=== PATIENT | female | born 1945 | race Caucasian/White ===

== ENCOUNTER 2018-04-20 18:09 | Inpatient (IN) | payer MEDICARE, OTHER, MEDICAID ==
[2018-04-20] MEDS ORDERED: ASPIRIN 81 MG TABLET, CHEWABLE PO ONE (18:44)
[2018-04-20] MEDS: DILTIAZEM HCL/D5W 125 MG/125 ML RTUINJ IV PRN (19:00)
--- NOTE | 2018-04-20 19:41 | RADIOLOGY REPORT (SQ) ---
EXAM DESCRIPTION: CHEST SINGLE VIEW COMPLETED DATE/TIME: 04/20/2018 7:13 pm REASON FOR STUDY: a, fib RVR, SOB COMPARISON: None. EXAM PARAMETERS: NUMBER OF VIEWS: One view. TECHNIQUE: Single frontal radiographic view of the chest acquired. RADIATION DOSE: NA LIMITATIONS: None. FINDINGS: LUNGS AND PLEURA: No opacities, masses or pneumothorax. No pleural effusion. MEDIASTINUM AND HILAR STRUCTURES: No masses. Contour normal. HEART AND VASCULAR STRUCTURES: Heart normal in size. Normal vasculature. BONES: No acute findings. HARDWARE: None in the chest. OTHER: No other significant finding. IMPRESSION: NO ACUTE RADIOGRAPHIC FINDING IN THE CHEST. TECHNICAL DOCUMENTATION: JOB ID: [id number] [employer]- All Rights Reserved Reading location - IP/workstation name: [email or web address]
[2018-04-20 20:17] LABS: ABSOLUTE BASOPHILS # (AUTO) 0.1 10^3/uL (0.0-0.2); ABSOLUTE EOSINOPHILS # (AUTO) 0.1 10^3/uL (0.0-0.6); ABSOLUTE LYMPHOCYTES (AUTO) 1.6 10^3/uL (0.5-4.7); ABSOLUTE MONOCYTES (AUTO) 0.5 10^3/uL (0.1-1.4); ABSOLUTE NEUT (AUTO) 4.4 10^3/uL (1.7-8.2); EOSINOPHILS % (AUTO) 0.8 % (0-6); HEMATOCRIT 38.5 % (36.0-47.0); HEMOGLOBIN 13.3 g/dL (12.0-15.5); LYMPHOCYTES % (AUTO) 24.4 % (13-45); MEAN CORPUSCULAR HEMOGLOBIN 31.5 pg (27.0-33.4); MEAN CORPUSCULAR HGB CONC 34.5 g/dL (32.0-36.0); MEAN CORPUSCULAR VOLUME 91 fl (80-97); MONOCYTES % (AUTO) 8.2 % (3-13); PLATELET COUNT 241 10^3/uL (150-450); RED BLOOD COUNT 4.21 10^6/uL (3.72-5.28); RED CELL DISTRIBUTION WIDTH 14.1 % (11.5-14.0); SEGMENTED NEUTROPHILS % (AUTO) 65.6 % (42-78); TOTAL CELLS COUNTED % (AUTO) 100 %; WHITE BLOOD COUNT 6.7 10^3/uL (4.0-10.5)
[2018-04-20 20:24] LABS: INTERNATIONAL RATION (INR) 1.03
[2018-04-20 20:25] LABS: PARTIAL THROMBOPLASTIN TIME 32.1 SEC (23.5-35.8)
[2018-04-20 20:29] LABS: ALANINE AMINOTRANSFERASE 43 U/L (9-52); ALBUMIN 4.3 g/dL (3.5-5.0); ALKALINE PHOSPHATASE 98 U/L (38-126); ANION GAP 10 (5-19); ASPARTATE AMINO TRANSFERASE 57 U/L (14-36); BILIRUBIN,DIRECT 0.2 mg/dL (0.0-0.4); BILIRUBIN,TOTAL 0.6 mg/dL (0.2-1.3); BLOOD UREA NITROGEN 25 mg/dL (7-20); CALCIUM 9.7 mg/dL (8.4-10.2); CARBON DIOXIDE 26 mmol/L (22-30); CHLORIDE 105 mmol/L (98-107); CREATINE KINASE 33 U/L (30-135); GLUCOSE 132 mg/dL (75-110); SODIUM 140.7 mmol/L (137-145); TOTAL PROTEIN 7.5 g/dL (6.3-8.2)
[2018-04-20 20:31] LABS: APPEARANCE,URINE SLIGHTLY-CLOUDY; BILIRUBIN,URINE NEGATIVE (NEGATIVE); COLOR,URINE YELLOW; GLUCOSE, URINE NEGATIVE (NEGATIVE); KETONES,URINE NEGATIVE (NEGATIVE); LEUKOCYTE ESTERASE,URINE TRACE (NEGATIVE); NITRITE,URINE NEGATIVE (NEGATIVE); PROTEIN,URINE NEGATIVE (NEGATIVE); URINE SPECIFIC GRAVITY 1.018; UROBILINOGEN,URINE NEGATIVE mg/dL (<2.0)
[2018-04-20 20:55] LABS: CREATINE KINASE MB 0.24 ng/mL (<4.55); TROPONIN I 0.031 ng/mL
[2018-04-20 21:01] LABS: FREE T3 4.65 pg/mL (2.77-5.27); FREE T4 (FREE THYROXINE) 1.53 ng/dL (0.78-2.19)
[2018-04-20 21:15] LABS: THYROID STIMULATING HORMONE 2.69 uIU/mL (0.47-4.68)
--- NOTE | 2018-04-20 22:42 | EKG REPORT ---
SEVERITY:- ABNORMAL ECG - ATRIAL FIBRILLATION, V-RATE 64-143 BORDERLINE R WAVE PROGRESSION, ANTERIOR LEADS : Confirmed by: Srikanth Barkley MD 20-Apr-2018 22:40:52
--- NOTE | 2018-04-21 00:33 | ER Document Report ---
Entered by KRISH RIBEIRO SCRIBE 04/20/182008 Acting as scribe for:ARNAUD WATSON DO ED Respiratory Problem - General Chief Complaint: Shortness Of Breath Stated Complaint: SHORTNESS OF BREATH Time Seen by Provider: 04/20/18 18:42 Mode of Arrival: Ambulatory Information source: Patient Notes: 72-year-old female that presents to the emergency department today with complaints of an elevated heart rate prior to arrival. Patient states that today she began feeling flushed, her throat felt tight/achy, and she then stood up and felt dizzy. EMS reports when they arrived the patient had a heart rate of 200 and was in atrial fibrillation. They gave her a bolus of Cardizem and started her on a drip of Cardizem at 10. After this her symptoms resolved. Patient states she believes she has a history of A. fib but she is not on any medication. Patient states she took metoprolol for this at one time but was taken off of it. Patient also complains of a headache. Patient states that she does not take aspirin daily. TRAVEL OUTSIDE OF THE [place] IN LAST 30 DAYS: No - Related Data Allergies/Adverse Reactions: levofloxacin [From Levaquin] Allergy (Verified 04/20/18 18:32) lisinopril Allergy (Verified 04/20/18 18:33) acetaminophen [From Percocet] Adverse Reaction (Verified 04/21/18 03:04) Constipation oxycodone [From Percocet] Adverse Reaction (Verified 04/21/18 03:04) Constipation Past Medical History - General Information source: Patient - Social History Smoking Status: Former Smoker Cigarette use (# per day): No Frequency of alcohol use: None Drug Abuse: None Lives with: Family Family History: Reviewed & Not Pertinent Patient has suicidal ideation: No Patient has homicidal ideation: No - Past Medical History Cardiac Medical History: Reports: Hx Atrial Fibrillation Malignancy Medical History: Reports: Hx Skin Cancer Past Surgical History: Reports: Other - Biopsies of scalp - basal cell carcinoma Review of Systems - Review of Systems Constitutional: See HPI, Other - feeling flushed EENT: See HPI, Other - throat feels tight/achy Cardiovascular: See HPI, Heart racing, Dizziness Respiratory: No symptoms reported Gastrointestinal: No symptoms reported Genitourinary: No symptoms reported Female Genitourinary: No symptoms reported Musculoskeletal: See HPI, Back pain - chronic Skin: No symptoms reported Hematologic/Lymphatic: No symptoms reported Neurological/Psychological: See HPI, Headaches -: Yes All other systems reviewed and negative Physical Exam - Vital signs Vitals: Resp 12 04/20/18 18:18 - Notes Notes: PHYSICAL EXAM GENERAL: Alert, interacts well. No acute distress. HEAD: Normocephalic. Sutures with crusting to scalp with 6mm of surrounding erythema, no fluctuance. EYES: Pupils equal, round, and reactive to light. Extraocular movements intact. ENT: Oral mucosa moist, tongue midline. NECK: Full range of motion. Supple. Trachea midline. LUNGS: Clear to auscultation bilaterally, no wheezes, rales, or rhonchi. No resp iratory distress. HEART: Irregular irregular, rate controlled. No murmurs, gallops, or rubs. EXTREMITIES: Moves all 4 extremities spontaneously. No edema, radial and dorsalis pedis pulses 2/4 bilaterally. No cyanosis. NEUROLOGICAL: Alert and oriented x3. Normal speech. PSYCH: Normal affect, normal mood. SKIN: Warm, dry, normal turgor. Course - Re-evaluation Re-evalutation: 04/21/18 00:31 CBC unremarkable, coags unremarkable, CMP grossly unremarkable only some hyperglycemia, troponin is initially negative and then into to indeterminate it was 0.031 and then 0.058, no continuing ongoing chest pain. Urinalysis is trace leukocyte esterase. Chest x-ray shows no acute process. EKG is nonischemic. Patient has been increasingly rate controlled since arriving in the emergency department. Patient's Cardizem drip started at 10 and has now been decreased to 8. Patient was discussed with Dr. Marcus who agrees to accept the patient to his service for A. fib RVR. - Vital Signs Vital signs: Temp Pulse Resp BP Pulse Ox 98.0 F 12 116/58 L 97 04/20/18 18:28 04/21/18 02:01 04/21/18 02:01 04/21/18 02:18 - Laboratory Result Diagrams: 04/20/18 19:50 04/20/18 19:50 Laboratory results interpreted by me: 04/20/18 04/20/18 04/20/18 19:50 19:50 20:15 RDW 14.1 H BUN 25 H Est GFR (Non-Af Amer) 55 L Glucose 132 H AST 57 H Ur Leukocyte Esterase TRACE H - EKG Interpretation by Me Additional EKG results interpreted by me: 04/21/18 00:31 EKG shows atrial fibrillation which is tachycardic at a rate of 103, normal axis, normal intervals no ST segment elevations or depressions, no T wave inversions per my interpretation. Critical Care Note - Critical Care Note Total time excluding time spent on procedures (mins): 35 Discharge - Discharge Clinical Impression: Atrial fibrillation with RVR Condition: Good Disposition: ADMITTED INPATIENT Admitting Provider: [facility] Unit Admitted: Telemetry I personally performed the services described in the documentation, reviewed and edited the documentation which was dictated to the scribe in my presence, and it accurately records my words and actions.
[2018-04-21] MEDS ORDERED: ACETAMINOPHEN 325 MG TABLET PO PRN (00:38)
[2018-04-21] MEDS ORDERED: DEXTROSE 50%-WATER 25 GM/50 ML DISP.SYRIN IV PRN ×2 (00:38)
[2018-04-21] MEDS ORDERED: DEXTROSE 40% GEL 15 GM TUBE PO PRN ×2 (00:38)
[2018-04-21] MEDS ORDERED: MAG HYDROX/AL HYDROX/SIMETH SUSP 30 ML UDCUP PO PRN (00:38)
[2018-04-21] MEDS ORDERED: MAGNESIUM HYDROXIDE SUSP 30 ML UDCUP PO PRN (00:38)
[2018-04-21] MEDS ORDERED: GLUCAGON,HUMAN RECOMB 1 MG INJ IM PRN (00:38)
[2018-04-21] MEDS: NORMAL SALINE 1000 ML 1,000 ML IV PRN ×2 (02:30→04:19)
[2018-04-21] MEDS ORDERED: KETOROLAC TROMETHAMINE INJ/PF 30 MG/1 ML SDV IV PRN (04:14)
[2018-04-21 05:11] LABS: ANION GAP 11 (5-19); BLOOD UREA NITROGEN 23 mg/dL (7-20); CALCIUM 9.1 mg/dL (8.4-10.2); CARBON DIOXIDE 22 mmol/L (22-30); CHLORIDE 109 mmol/L (98-107); GLUCOSE 117 mg/dL (75-110); POTASSIUM 3.7 mmol/L (3.6-5.0); SODIUM 141.5 mmol/L (137-145)
--- NOTE | 2018-04-21 06:15 | PDOC H&P ---
History of Present Illness Admission Date/PCP: 04/21/18 00:37 Patient complains of: Lightheaded History of Present Illness: BRANDI LUCIA is a 72 year old female with a past medical history of diabetes, hypertension, chronic back pain and morbid obesity. She presents 1 hour after the onset of awakening from sleep feeling flushed lightheaded with throat tightness prompting a call to the EMS where she is reported to be in atrial fibrillation in the 200s. She receives Cardizem 10 resolving symptoms and brought to the emergency room for evaluation where she is continued on IV Cardizem. She believes a remote diagnosis of atrial fibrillation for which she was on metoprolol. Patient has scheduled spinal surgery for chronic back pain next week, anticoagulation not initiated. New medications initiated for pain following basal cell carcinoma resection on the scalp. Past Medical History Cardiac Medical History: Reports: Atrial Fibrillation Malignancy Medical History: Reports: Skin Cancer Past Surgical History Past Surgical History: Reports: Other - Biopsies of scalp - basal cell carcinoma Social History Information Source: Patient, [facility] Records Lives with: Family Smoking Status: Former Smoker Frequency of Alcohol Use: None Hx Recreational Drug Use: No Hx Prescription Drug Abuse: No - Advance Directive Resuscitation Status: Full Code Family History Family History: Hypertension Parental Family History Reviewed: Yes Children Family History Reviewed: Yes Sibling(s) Family History Reviewed.: Yes Medication/Allergy Home Medications: Baclofen [Baclofen 10 mg Tablet] 10 mg PO TID PRN 04/21/18 Cephalexin Monohydrate [Keflex 250 mg Capsule] 250 mg PO TID 04/21/18 Fluticasone Propionate [Flonase Nasal [place] 50 Mcg/[place] 16 gm] 2 sprays NASL Q12 04/21/18 Losartan Potassium 100 mg PO DAILY 04/21/18 Melatonin [Melatonin 3 mg Tablet] 3 mg PO QHS 04/21/18 Meloxicam [Mobic 7.5 mg Tablet] 7.5 mg PO BID PRN 04/21/18 Metformin HCl 500 mg PO BID 04/21/18 Omeprazole 40 mg PO BID 04/21/18 Allergies/Adverse Reactions: levofloxacin [From Levaquin] Allergy (Verified 04/20/18 18:32) lisinopril Allergy (Verified 04/20/18 18:33) acetaminophen [From Percocet] Adverse Reaction (Verified 04/21/18 03:04) Constipation oxycodone [From Percocet] Adverse Reaction (Verified 04/21/18 03:04) Constipation Review of Systems Constitutional: ABSENT: chills, fever(s), headache(s), weight gain, weight loss Eyes: ABSENT: visual disturbances Ears: ABSENT: hearing changes Cardiovascular: ABSENT: chest pain, dyspnea on exertion, edema, orthropnea, palpitations Respiratory: ABSENT: cough, hemoptysis Gastrointestinal: ABSENT: abdominal pain, constipation, diarrhea, hematemesis, hematochezia, nausea, vomiting Genitourinary: ABSENT: dysuria, hematuria Musculoskeletal: ABSENT: joint swelling Integumentary: ABSENT: rash, wounds Neurological: ABSENT: abnormal gait, abnormal speech, confusion, dizziness, focal weakness, syncope Psychiatric: ABSENT: anxiety, depression, homidical ideation, suicidal ideation Endocrine: ABSENT: cold intolerance, heat intolerance, polydipsia, polyuria Hematologic/Lymphatic: ABSENT: easy bleeding, easy bruising Physical Exam Vital Signs: Temp Pulse Resp BP Pulse Ox 97.5 F 73 12 132/58 H 98 04/21/18 03:01 04/21/18 04:45 04/21/18 03:01 04/21/18 04:45 04/21/18 03:01 Intake & Output 04/19/18 04/20/18 04/21/18 11:59 11:59 11:59 Intake Total 993 Balance 993 Weight 106.8 kg General appearance: PRESENT: no acute distress, cooperative, well-developed, w ell-nourished Head exam: PRESENT: atraumatic, normocephalic, other - 5 cm sutured incision frontal to caudial scalp appears clean without pain, erythema or exudate Eye exam: PRESENT: conjunctiva pink, EOMI, PERRLA. ABSENT: scleral icterus Ear exam: PRESENT: normal external ear exam Mouth exam: PRESENT: moist, tongue midline Neck exam: ABSENT: carotid bruit, JVD, lymphadenopathy, thyromegaly Respiratory exam: PRESENT: clear to auscultation radha. ABSENT: rales, rhonchi, wheezes Cardiovascular exam: PRESENT: irregular rhythm, tachycardia. ABSENT: diastolic murmur, rubs, systolic murmur Pulses: PRESENT: normal dorsalis pedis pul Vascular exam: PRESENT: normal capillary refill GI/Abdominal exam: PRESENT: normal bowel sounds, soft. ABSENT: distended, guarding, mass, organolmegaly, rebound, tenderness Rectal exam: PRESENT: deferred Extremities exam: PRESENT: full ROM. ABSENT: calf tenderness, clubbing, pedal edema Neurological exam: PRESENT: alert, awake, oriented to person, oriented to place, oriented to time, oriented to situation, CN II-XII grossly intact. ABSENT: motor sensory deficit Psychiatric exam: PRESENT: appropriate affect, normal mood. ABSENT: homicidal ideation, suicidal ideation Skin exam: PRESENT: dry, intact, warm. ABSENT: cyanosis, rash Results Laboratory Results: 04/20/18 19:50 04/21/18 04:46 04/20/18 04/20/18 04/20/18 19:50 19:50 19:50 WBC 6.7 RBC 4.21 Hgb 13.3 Hct 38.5 MCV 91 MCH 31.5 MCHC 34.5 RDW 14.1 H Plt Count 241 Seg Neutrophils % 65.6 Lymphocytes % 24.4 Monocytes % 8.2 Eosinophils % 0.8 Basophils % 1.0 Absolute Neutrophils 4.4 Absolute Lymphocytes 1.6 Absolute Monocytes 0.5 Absolute Eosinophils 0.1 Absolute Basophils 0.1 Sodium 140.7 Potassium 4.0 Chloride 105 Carbon Dioxide 26 Anion Gap 10 BUN 25 H Creatinine 1.00 Est GFR ( Amer) > 60 Est GFR (Non-Af Amer) 55 L Glucose 132 H Calcium 9.7 Magnesium Total Bilirubin 0.6 AST 57 H ALT 43 Alkaline Phosphatase 98 Total Protein 7.5 Albumin 4.3 TSH 2.69 Free T4 1.53 Free T3 pg/mL 4.65 Urine Color Urine Appearance Urine pH Ur Specific [place] Urine Protein Urine Glucose (UA) Urine Ketones Urine Blood Urine Nitrite Ur Leukocyte Esterase Urine WBC (Auto) Urine RBC (Auto) 04/20/18 04/20/18 04/21/18 20:15 22:53 04:46 WBC RBC Hgb Hct MCV MCH MCHC RDW Plt Count Seg Neutrophils % Lymphocytes % Monocytes % Eosinophils % Basophils % Absolute Neutrophils Absolute Lymphocytes Absolute Monocytes Absolute Eosinophils Absolute Basophils Sodium 141.5 Potassium 3.7 Chloride 109 H Carbon Dioxide 22 Anion Gap 11 BUN 23 H Creatinine 0.73 Est GFR ( Amer) > 60 Est GFR (Non-Af Amer) > 60 Glucose 117 H Calcium 9.1 Magnesium 1.9 Total Bilirubin AST ALT Alkaline Phosphatase Total Protein Albumin TSH Free T4 Free T3 pg/mL Urine Color YELLOW Urine Appearance SLIGHTLY-CLOUDY Urine pH 5.0 Ur Specific [place] 1.018 Urine Protein NEGATIVE Urine Glucose (UA) NEGATIVE Urine Ketones NEGATIVE Urine Blood NEGATIVE Urine Nitrite NEGATIVE Ur Leukocyte Esterase TRACE H Urine WBC (Auto) 4 Urine RBC (Auto) 1 04/20/18 04/20/18 04/20/18 19:50 19:50 22:53 Creatine Kinase 33 CK-MB (CK-2) 0.24 Troponin I 0.031 0.058 Impressions: Chest X-Ray 04/20/18 18:45 IMPRESSION: NO ACUTE RADIOGRAPHIC FINDING IN THE CHEST. Assessment & Plan - Diagnosis (1) Atrial fibrillation with RVR Is this a current diagnosis for this admission?: Yes Plan: Unclear cause for onset, IV Cardizem, no anticoagulation secondary to pending spinal surgery, follow up troponin, 2D echo and cardiology consult (2) Chronic back pain Is this a current diagnosis for this admission?: Yes Plan: Scheduled for spinal surgery next week. Hold anticoagulation for paroxysmal atrial fibrillation. (3) Hypertension Is this a current diagnosis for this admission?: Yes Plan: Anticipate control with rate limiting medication prior to initiation of other agents. - Time Time Spent: 50 to 70 Minutes - Inpatient Certification Medical Necessity: Need Close Monitoring Due to Risk of Patient Decompensation
[2018-04-21] MEDS: HEPARIN SOD (PORCINE) 5,000 UNIT/ML 1 ML SYRINGE SUBCUT SCH ×3 (06:39→21:47)
[2018-04-21] MEDS: BACLOFEN 10 MG TABLET PO PRN ×2 (06:43→13:39)
[2018-04-21] MEDS: INSULIN LISPRO 100 UNIT/ML 3 ML VIAL SUBCUT SCH ×3 (07:54→16:03)
[2018-04-21] MEDS: LOSARTAN POTASSIUM 50 MG TABLET PO SCH (09:32)
[2018-04-21] MEDS: PANTOPRAZOLE SODIUM 40 MG TABLET.DR PO SCH ×2 (09:32→17:10)
[2018-04-21] MEDS: DOCUSATE SODIUM 100 MG CAPSULE PO SCH ×2 (09:32→17:10)
--- NOTE | 2018-04-21 09:43 | PDOC CONSULTATION ---
Consultation Consult Date: 04/21/18 Consult reason:: atrial fibrillation History of Present Illness Admission Date/PCP: 04/21/18 00:37 History of Present Illness: BRANDI LUCIA is a 72 year old female With past medical history of hypertension, chronic back pain was admitted with complaints of sudden onset shortness of breath with feeling of throat choking and found to be in atrial fibrillation with rapid ventricular rate. According to the electronic health records patient was given Cardizem to control her heart rate and at some point last night she converted back to sinus rhythm. Patient seen at bedside and at this time denies any complaints of palpitations or acute shortness of breath. She does admit to intermittent episodes of feeling like her throat is choking but usually resolve spontaneously. She also admits to intermittent episodes of chest pain/discomfort, usually not on exertion and relieved with time. She admits to shortness of breath on moderate to heavy exertion at home. She is and lives by herself. She quit cigarette smoking many years ago and denies any alcohol abuse. She denies any known history of sleep apnea. She claims that her parents had hypertension. She claims that many years ago she had seen a doctor in [place] for an irregular heartbeat and at some point was on metoprolol which was then stopped and she did not have any problems after that. She also claims that she had a stress test more than 5 years ago which was normal. She is due to have back surgery later this month for pain in the lower back radiating to her legs and is due to see an anesthesiologist coming Monday for preop evaluation. She denies history of diabetes but currently is on metformin at home. She denies any history of passing out episodes. She does give history of bleeding per rectum more than 2 years ago from internal hemorrhoids and she had banding done for hemorrhoids. She has not had any more bleeding per rectum since then. Past Medical History Cardiac Medical History: Reports: Atrial Fibrillation, Hypertension Endocrine Medical History: Reports: Obesity Malignancy Medical History: Reports: Skin Cancer Musculoskeltal Medical History: Reports: Arthritis Past Surgical History Past Surgical History: Reports: Knee Replacement, Other - Biopsies of scalp - basal cell carcinoma Social History Lives with: Alone, Family Smoking Status: Former Smoker Frequency of Alcohol Use: None Hx Recreational Drug Use: No Hx Prescription Drug Abuse: No - Advance Directive Resuscitation Status: Full Code Family History Family History: Hypertension Parental Family History Reviewed: Yes Children Family History Reviewed: No Sibling(s) Family History Reviewed.: Yes Medication/Allergy Home Medications: Baclofen [Baclofen 10 mg Tablet] 10 mg PO TID PRN 04/21/18 Cephalexin Monohydrate [Keflex 250 mg Capsule] 250 mg PO TID 04/21/18 Fluticasone Propionate [Flonase Nasal [place] 50 Mcg/[place] 16 gm] 2 sprays NASL Q12 04/21/18 Losartan Potassium 100 mg PO DAILY 04/21/18 Melatonin [Melatonin 3 mg Tablet] 3 mg PO QHS 04/21/18 Meloxicam [Mobic 7.5 mg Tablet] 7.5 mg PO BID PRN 04/21/18 Metformin HCl 500 mg PO BID 04/21/18 Omeprazole 40 mg PO BID 04/21/18 Allergies/Adverse Reactions: levofloxacin [From Levaquin] Allergy (Verified 04/20/18 18:32) lisinopril Allergy (Verified 04/20/18 18:33) acetaminophen [From Percocet] Adverse Reaction (Verified 04/21/18 03:04) Constipation oxycodone [From Percocet] Adverse Reaction (Verified 04/21/18 03:04) Constipation Review of Systems Nose, Mouth, and Throat: PRESENT: other - Intermittent episodes of throat choking Cardiovascular: PRESENT: chest pain, dyspnea on exertion Musculoskeletal: PRESENT: back pain Physical Exam Vital Signs: Temp Pulse Resp BP Pulse Ox 97.8 F 68 12 132/68 H 97 04/21/18 08:02 04/21/18 08:02 04/21/18 08:02 04/21/18 08:02 04/21/18 08:02 Intake & Output 04/20/18 04/21/18 04/22/18 06:59 06:59 06:59 Intake Total 1193 1000 Output Total 500 Balance 693 1000 Weight 100.9 kg Results Laboratory Results: 04/20/18 19:50 04/21/18 04:46 04/20/18 04/20/18 04/20/18 19:50 19:50 19:50 WBC 6.7 RBC 4.21 Hgb 13.3 Hct 38.5 MCV 91 MCH 31.5 MCHC 34.5 RDW 14.1 H Plt Count 241 Seg Neutrophils % 65.6 Lymphocytes % 24.4 Monocytes % 8.2 Eosinophils % 0.8 Basophils % 1.0 Absolute Neutrophils 4.4 Absolute Lymphocytes 1.6 Absolute Monocytes 0.5 Absolute Eosinophils 0.1 Absolute Basophils 0.1 Sodium 140.7 Potassium 4.0 Chloride 105 Carbon Dioxide 26 Anion Gap 10 BUN 25 H Creatinine 1.00 Est GFR ( Amer) > 60 Est GFR (Non-Af Amer) 55 L Glucose 132 H Calcium 9.7 Magnesium Total Bilirubin 0.6 AST 57 H ALT 43 Alkaline Phosphatase 98 Total Protein 7.5 Albumin 4.3 TSH 2.69 Free T4 1.53 Free T3 pg/mL 4.65 Urine Color Urine Appearance Urine pH Ur Specific [place] Urine Protein Urine Glucose (UA) Urine Ketones Urine Blood Urine Nitrite Ur Leukocyte Esterase Urine WBC (Auto) Urine RBC (Auto) 04/20/18 04/20/18 04/21/18 20:15 22:53 04:46 WBC RBC Hgb Hct MCV MCH MCHC RDW Plt Count Seg Neutrophils % Lymphocytes % Monocytes % Eosinophils % Basophils % Absolute Neutrophils Absolute Lymphocytes Absolute Monocytes Absolute Eosinophils Absolute Basophils Sodium 141.5 Potassium 3.7 Chloride 109 H Carbon Dioxide 22 Anion Gap 11 BUN 23 H Creatinine 0.73 Est GFR ( Amer) > 60 Est GFR (Non-Af Amer) > 60 Glucose 117 H Calcium 9.1 Magnesium 1.9 Total Bilirubin AST ALT Alkaline Phosphatase Total Protein Albumin TSH Free T4 Free T3 pg/mL Urine Color YELLOW Urine Appearance SLIGHTLY-CLOUDY Urine pH 5.0 Ur Specific [place] 1.018 Urine Protein NEGATIVE Urine Glucose (UA) NEGATIVE Urine Ketones NEGATIVE Urine Blood NEGATIVE Urine Nitrite NEGATIVE Ur Leukocyte Esterase TRACE H Urine WBC (Auto) 4 Urine RBC (Auto) 1 04/20/18 04/20/18 04/20/18 19:50 19:50 22:53 Creatine Kinase 33 CK-MB (CK-2) 0.24 Troponin I 0.031 0.058 Impressions: Chest X-Ray 04/20/18 18:45 IMPRESSION: NO ACUTE RADIOGRAPHIC FINDING IN THE CHEST. Status: Image reviewed by me Assessment & Plan - Diagnosis (1) Atrial fibrillation with RVR Is this a current diagnosis for this admission?: Yes (2) Hypertension Qualifiers: Hypertension type: essential hypertension Qualified Code(s): I10 - Essential (primary) hypertension Is this a current diagnosis for this admission?: Yes (5) Chronic back pain Is this a current diagnosis for this admission?: Yes - Notes Notes: Patient appears euvolemic on exam at this time with blood pressure mildly elevated. We reviewed her EKG which showed atrial fibrillation and telemetry now which shows sinus rhythm. Her chads 2 VASC score is at least 3 which gives her an annual risk of 3.2% for an embolic stroke. Her risk will be higher if she will be considered a diabetic. Per current guidelines it is recommended that she be anticoagulated for stroke prophylaxis and we have discussed at length the risk/benefits of systemic anticoagulation and patient has verbalized understanding of the risks/benefits and agrees to be on systemic anticoagulation. We also discussed options for anticoagulation including warfarin versus NOACs and patient prefers the NOACs which can be stopped 2-3 days before her back surgery. Will recommend a transthoracic echocardiogram today to evaluate for systolic and diastolic function and consider ischemia evaluation because of her risk factors for atherosclerotic cardiovascular disease including age, previous history of smoking, hypertension and obesity. She will require a 2-day Lexiscan Cardiolite nuclear stress test. Patient already on losartan for hypertension. May consider low-dose beta-stephenie therapy for rate control. Consider checking fasting lipid panel to evaluate for need for statin therapy. Further recommendations after reviewing transthoracic echocardiogram. - Time Time Spent: 50 to 70 Minutes
--- NOTE | 2018-04-21 09:53 | PROGRESS NOTE E ---
Progress Note NAME: BRANDI ULCIA : 1945 AGE: 72Y DATE: 04/21/2018 ROOM: 325 SUBJECTIVE: The patient is a 72-year-old pleasant female who has a past medical history of atrial fibrillation, hypertension. The patient was admitted with lightheadedness, chest pain, and A-fib, was saturated to 200, started on Cardizem drip. She is feeling better now. No fever or chills. She is stable for back surgery and waiting for cardiology clearance. OBJECTIVE: GENERAL: Patient lying in bed comfortable, not in distress. VITAL SIGNS: Temperature is 97.8, heart rate is 68, respiratory rate is 12, blood pressure is 132/68. HEENT: Head normocephalic, atraumatic. Pupils round, reactive to light and accommodation bilaterally. Extraocular movements intact. Ears: Tympanic membranes intact bilaterally. No discharge from the ears. No discharge from the nose. NECK: Supple. No increased JVD. No thyromegaly. No lymphadenopathy. CARDIOVASCULAR: Normal S1, S2. Regular rate and rhythm. ABDOMEN: Soft, nontender. MUSCULOSKELETAL: No edema. NEUROLOGICAL: Awake, alert. SKIN: No rash. LABORATORY: Sodium is 141, potassium 3.6, carbon dioxide is 22, creatinine is 0.7. White blood count 6.7, hemoglobin 13.3. ASSESSMENT AND PLAN: 1. ATRIAL FIBRILLATION WITH RAPID VENTRICULAR RESPONSE, RATE CONTROLLED NOW ON CARDIZEM DRIP. Seen by Cardiology. Recommended echo and started her on and stress test on Monday. 2. CHRONIC BACK PAIN. Need clearance by director translation. Will wait for the results of echocardiogram as well as also stress test on Monday. 3. HYPERTENSION, CONTROLLED. MEDICAL NECESSITY: The patient needs to stay for workup for atrial fibrillation as well as echocardiogram and stress test on Monday. TIME SPENT: 25 minutes. DICTATING PHYSICIAN: AMRIT ROCK M.D. [id number] PHY#: [id number] ID: [id number] JOB#: [id number] ACCT: [id number] cc: > [facility]
[2018-04-21] MEDS: FLUTICASONE NASAL SPRAY 50 MCG/SPRY 120 SPRAY/16 GM NASL SCH ×2 (12:07→21:46)
[2018-04-21] MEDS: IBUPROFEN 800 MG TABLET PO PRN (13:39)
[2018-04-21] MEDS: DILTIAZEM HCL/D5W 125 MG/125 ML RTUINJ IV PRN (17:10)
[2018-04-21] MEDS: APIXABAN 5 MG TABLET PO SCH (17:10)
[2018-04-21] MEDS: MELATONIN 3 MG TABLET PO SCH (21:46)
[2018-04-21] MEDS: METOPROLOL TARTRATE 25 MG TABLET PO SCH (21:46)
[2018-04-22 00:32] LABS: CREATINE KINASE MB 0.28 ng/mL (<4.55); TROPONIN I 0.018 ng/mL
[2018-04-22] MEDS: HEPARIN SOD (PORCINE) 5,000 UNIT/ML 1 ML SYRINGE SUBCUT SCH ×3 (05:17→21:09)
[2018-04-22 06:39] LABS: ANION GAP 9 (5-19); BLOOD UREA NITROGEN 17 mg/dL (7-20); CALCIUM 9.5 mg/dL (8.4-10.2); CARBON DIOXIDE 24 mmol/L (22-30); CHLORIDE 109 mmol/L (98-107); CREATINE KINASE 33 U/L (30-135); GLUCOSE 132 mg/dL (75-110); POTASSIUM 4.1 mmol/L (3.6-5.0); SODIUM 142.2 mmol/L (137-145)
[2018-04-22 06:49] LABS: CREATINE KINASE MB 0.26 ng/mL (<4.55); TROPONIN I 0.015 ng/mL
[2018-04-22] MEDS: INSULIN LISPRO 100 UNIT/ML 3 ML VIAL SUBCUT SCH ×3 (07:50→15:31)
[2018-04-22] MEDS: IBUPROFEN 800 MG TABLET PO PRN ×2 (08:45→09:10)
[2018-04-22] MEDS: BACLOFEN 10 MG TABLET PO PRN ×2 (08:46→09:10)
[2018-04-22] MEDS: PANTOPRAZOLE SODIUM 40 MG TABLET.DR PO SCH ×2 (09:10→17:52)
[2018-04-22] MEDS: DOCUSATE SODIUM 100 MG CAPSULE PO SCH ×2 (09:10→17:52)
[2018-04-22] MEDS: LOSARTAN POTASSIUM 50 MG TABLET PO SCH (09:10)
[2018-04-22] MEDS: METOPROLOL TARTRATE 25 MG TABLET PO SCH ×2 (09:10→21:08)
[2018-04-22] MEDS: APIXABAN 5 MG TABLET PO SCH ×2 (09:10→17:52)
[2018-04-22] MEDS: FLUTICASONE NASAL SPRAY 50 MCG/SPRY 120 SPRAY/16 GM NASL SCH ×2 (09:11→21:09)
[2018-04-22] MEDS ORDERED: ONDANSETRON HCL INJ/PF 4 MG/2 ML SDV ONE (11:09)
[2018-04-22] MEDS ORDERED: ONDANSETRON HCL INJ/PF 4 MG/2 ML SDV IV PRN (11:11)
--- NOTE | 2018-04-22 12:03 | PDOC PROGRESS REPORT ---
Subjective Progress Note for:: 04/22/18 Reason For Visit: AFIB HYPOTENSION DIABETIES Patient seen at bedside and denies any complaints of chest pain or palpitations or shortness of breath at this time. She was started on metoprolol last night and her Cardizem drip was discontinued. She denies any bleeding per rectum or black stools. Physical Exam Vital Signs: Temp Pulse Resp BP Pulse Ox 97.7 F 63 16 112/92 H 99 04/22/18 11:08 04/22/18 11:08 04/22/18 11:08 04/22/18 11:08 04/22/18 11:08 Intake & Output 04/21/18 04/22/18 04/23/18 06:59 06:59 06:59 Intake Total 1193 2049 Output Total 500 1000 Balance 693 1049 Weight 100.9 kg 106.6 kg General appearance: PRESENT: no acute distress, morbidly obese Respiratory exam: PRESENT: clear to auscultation radha Cardiovascular exam: PRESENT: +S1, +S2 Pulses: PRESENT: normal radial pulses, normal dorsalis pedis pul Neurological exam: PRESENT: alert, altered, awake, oriented to person, oriented to place Results Laboratory Results: 04/20/18 19:50 04/22/18 05:53 04/22/18 05:53 Sodium 142.2 Potassium 4.1 Chloride 109 H Carbon Dioxide 24 Anion Gap 9 BUN 17 Creatinine 0.77 Est GFR ( Amer) > 60 Est GFR (Non-Af Amer) > 60 Glucose 132 H Calcium 9.5 04/20/18 04/20/18 04/20/18 19:50 19:50 22:53 Creatine Kinase 33 CK-MB (CK-2) 0.24 Troponin I 0.031 0.058 04/22/18 04/22/18 04/22/18 00:01 00:01 05:53 Creatine Kinase 35 33 CK-MB (CK-2) 0.28 Troponin I 0.018 04/22/18 05:53 Creatine Kinase CK-MB (CK-2) 0.26 Troponin I 0.015 Impressions: Chest X-Ray 04/20/18 18:45 IMPRESSION: NO ACUTE RADIOGRAPHIC FINDING IN THE CHEST. Assessment & Plan - Diagnosis (1) Atrial fibrillation with RVR Is this a current diagnosis for this admission?: Yes (2) Hypertension Qualifiers: Hypertension type: essential hypertension Qualified Code(s): I10 - Essential (primary) hypertension Is this a current diagnosis for this admission?: Yes (5) Chronic back pain Is this a current diagnosis for this admission?: Yes - Notes Notes: Reviewed telemetry and labs. Patient is in sinus rhythm at this time and will recommend continuation of beta-stephenie therapy for rate control and anticoa gulation for stroke prophylaxis. Patient had rest part of her stress test today and will have the Lexiscan stress part tomorrow. Dr. Sanderson is going to resume care of the patient tomorrow and will be evaluating her stress test. Discussed again the risks/benefits of anticoagulation with the patient and need for close follow-up of hemoglobin/hematocrit while on anticoagulation therapy. Urged patient to contact primary physician immediately if he has any blood in stools or black stools. She will need cardiology follow-up as an outpatient with Dr. Sanderson. - Time Time with patient: 15-25 minutes
[2018-04-22 13:44] LABS: ALBUMIN 4.1 g/dL (3.5-5.0); ANION GAP 9 (5-19); BLOOD UREA NITROGEN 16 mg/dL (7-20); CALCIUM 9.9 mg/dL (8.4-10.2); CARBON DIOXIDE 27 mmol/L (22-30); CHLORIDE 106 mmol/L (98-107); GLUCOSE 129 mg/dL (75-110); PHOSPHORUS 4.8 mg/dL (2.5-4.5); POTASSIUM 4.5 mmol/L (3.6-5.0)
[2018-04-22 13:56] LABS: CREATINE KINASE MB 0.28 ng/mL (<4.55)
[2018-04-22 13:57] LABS: TROPONIN I < 0.012 ng/mL
--- NOTE | 2018-04-22 15:23 | XCELERA REPORT ---
[address] [address] Transthoracic Echocardiogram Report Name: BRANDI LUCIA Age: 72 yrs Gender: Female : 1945 Patient Status: Inpatient Patient Location: [facility]^A Study Date: 04/22/2018 02:11 PM Height: 64 in Weight: 222 lb BSA: 2.0 m2 Reason For Study: new onset Afib Ordering Physician: AMRIT ROCK Performed By: Darius Liu Interpretation Summary Suboptimal study with amny poor images limiting detailed cardiac evaluation. Lack of contrast opacification limits evaluation for EF, walll motion and intracardiac mass/ thrombus. LV not well visualized but LVEF appears normal at 55-60%. Pls consider echo with contrast or MUGA scan for more accurate EF estimation. RV systolic functtion appears normal. The transmitral spectral Doppler flow pattern is abnormal for age There is a trace to mild amount of mitral regurgitation AV not well visualized but doppler data provided does not suggets any significant stenosis. There is a trace to mild amount of tricuspid regurgitation There is a trace amount of pulmonic regurgitation The aortic root is normal size. MMode/2D Measurements & Calculations RVDd: 2.9 cm LVIDd: 4.1 cm FS: 36.1 % Ao root diam: 2.7 cm IVSd: 1.0 cm LVIDs: 2.6 cm EDV(Teich): 75.4 ml LVPWd: 1.3 cm ESV(Teich): 25.5 ml Ao root area: 5.8 cm2 LA dimension: 3.6 cm EF(Teich): 66.2 % LVOT diam: 1.7 cm LVOT area: 2.3 cm2 Doppler Measurements & Calculations MV E max patience: MV P1/2t max patience: Ao V2 max: LV V1 max P.3 cm/sec 98.9 cm/sec 108.0 cm/sec 3.7 mmHg MV A max patience: MV P1/2t: 66.6 msec Ao max PG: LV V1 max: 96.3 cm/sec MVA(P1/2t): 3.3 cm2 4.7 mmHg 96.3 cm/sec MV E/A: 0.94 MV dec slope: SAV(V,D): 2.0 cm2 435.3 cm/sec2 MV dec time: 0.20 sec PA V2 max: PI end-d patience: TR max patience: MV P1/2t-pr_phl: 118.1 cm/sec 107.2 cm/sec 202.6 cm/sec 66.6 msec PA max PG: TR max P.6 mmHg 16.4 mmHg Left Ventricle The left ventricle is not well visualized. The left ventricular ejection fraction is normal. LV EF is 55-60%. The transmitral spectral Doppler flow pattern is abnormal for age. Right Ventricle The right ventricular systolic function is normal. Atria Right atrium not well visualized secondary to technical limitations. The left atrium is not well visualized secondary to technical limitations. Mitral Valve The mitral valve is not well visualized. There is a trace to mild amount of mitral regurgitation. Aortic Valve The aortic valve is not well visualized secondary to technical limitations. Focal calcification noted. There is a peak gradient of 5 mm of Hg. AV Vmax 109 cm/sec. Tricuspid Valve The tricuspid valve is not well visualized secondary to technical limitations. There is a trace to mild amount of tricuspid regurgitation. RVSP could not be estimated. Pulmonic Valve The pulmonic valve is not well visualized. There is a trace amount of pulmonic regurgitation. Great Vessels The aortic root is normal size. The inferior vena cava was not well visualized. Effusions Pericardium not well visualized to rule out pericardial effusion. : AMRIT ROCK > [place] Malin
--- NOTE | 2018-04-22 18:13 | PROGRESS NOTE E ---
Progress Note NAME: BRANDI LUCIA : 1945 AGE: 72Y DATE: 04/22/2018 ROOM: 325 SUBJECTIVE: The patient is doing better today. She is a 72-year-old female admitted with atrial fibrillation, chest pain, hypertension. She was admitted with lightheadedness also. She was on Cardizem, which was discontinued last night. The patient was seen by Cardiology and is stable today. First part of 2 days of stress test was given today. She is feeling much better. No chest pain. OBJECTIVE: GENERAL: Patient lying in bed, comfortable, not in distress. VITAL SIGNS: Temperature 97, heart rate 67, blood pressure is 148/73, saturation 99% on room air. HEENT: Head normocephalic, atraumatic. Pupils round, reactive to light and accommodation bilaterally. Extraocular movements intact. Ears: Tympanic membranes intact bilaterally. No discharge from the ears. No discharge from the nose. NECK: Supple. No increased JVD. No thyromegaly, no lymphadenopathy. CARDIOVASCULAR: Normal S1, S2. Regular rate and rhythm. No murmur, no gallop. RESPIRATORY: Lungs clear. ABDOMEN: Soft. MUSCULOSKELETAL: No edema. NEUROLOGICAL: Awake, alert. SKIN: No rash. LABORATORY DATA: White blood count 6.7, hemoglobin 13.3, hematocrit 38. Sodium is 142, potassium 4.1, chloride is 109. Creatinine is 0.7. ASSESSMENT: 1. ATRIAL FIBRILLATION WITH RAPID VENTRICULAR RESPONSE, RATE CONTROLLED. Converted to normal sinus rhythm. Cardizem was discontinued. Cardiology on service. 2. CHEST PAIN, RULE OUT CA. Three sets of cardiac enzymes negative. The patient is scheduled for 2 days of stress test. She already is scheduled also for echocardiogram. 3. HYPERTENSION, CONTROLLED. 4. DIABETES MELLITUS. Continue Lantus. PLAN: Will continue her metoprolol for now. She is on 25 mg twice a day. The patient was started on Eliquis 5 mg twice a day; will continue that. Ibuprofen was held, as well as losartan. Two-day stress test today and then tomorrow. MEDICAL NECESSITY: Patient needs to stay for a stress test. DICTATING PHYSICIAN: AMRIT ROCK M.D. [id number] [facility]#: [id number] ID: [id number] JOB#: [id number] ACCT: [id number] cc: >
[2018-04-22] MEDS: MELATONIN 3 MG TABLET PO SCH (21:09)
[2018-04-23] MEDS: HEPARIN SOD (PORCINE) 5,000 UNIT/ML 1 ML SYRINGE SUBCUT SCH (05:11)
[2018-04-23 05:55] LABS: ABSOLUTE EOSINOPHILS # (AUTO) 0.1 10^3/uL (0.0-0.6); ABSOLUTE LYMPHOCYTES (AUTO) 1.9 10^3/uL (0.5-4.7); ABSOLUTE MONOCYTES (AUTO) 0.4 10^3/uL (0.1-1.4); ABSOLUTE NEUT (AUTO) 3.4 10^3/uL (1.7-8.2); BASOPHILS % (AUTO) 0.6 % (0-2); EOSINOPHILS % (AUTO) 1.5 % (0-6); HEMATOCRIT 37.6 % (36.0-47.0); HEMOGLOBIN 13.3 g/dL (12.0-15.5); LYMPHOCYTES % (AUTO) 32.9 % (13-45); MEAN CORPUSCULAR HEMOGLOBIN 31.9 pg (27.0-33.4); MEAN CORPUSCULAR HGB CONC 35.4 g/dL (32.0-36.0); MEAN CORPUSCULAR VOLUME 90 fl (80-97); MONOCYTES % (AUTO) 6.2 % (3-13); PLATELET COUNT 211 10^3/uL (150-450); RED BLOOD COUNT 4.16 10^6/uL (3.72-5.28); RED CELL DISTRIBUTION WIDTH 14.2 % (11.5-14.0); SEGMENTED NEUTROPHILS % (AUTO) 58.8 % (42-78); TOTAL CELLS COUNTED % (AUTO) 100 %; WHITE BLOOD COUNT 5.7 10^3/uL (4.0-10.5)
[2018-04-23] MEDS: INSULIN LISPRO 100 UNIT/ML 3 ML VIAL SUBCUT SCH ×3 (10:22→17:10)
[2018-04-23] MEDS: PANTOPRAZOLE SODIUM 40 MG TABLET.DR PO SCH ×2 (10:32→17:14)
[2018-04-23] MEDS: APIXABAN 5 MG TABLET PO SCH ×2 (10:32→17:14)
[2018-04-23] MEDS: DOCUSATE SODIUM 100 MG CAPSULE PO SCH ×2 (10:32→17:14)
[2018-04-23] MEDS: FLUTICASONE NASAL SPRAY 50 MCG/SPRY 120 SPRAY/16 GM NASL SCH (10:32)
[2018-04-23] MEDS: BACLOFEN 10 MG TABLET PO PRN ×2 (10:54→17:14)
[2018-04-23] MEDS: IBUPROFEN 800 MG TABLET PO PRN (10:57)
[2018-04-23] MEDS: METOPROLOL TARTRATE 25 MG TABLET PO SCH ×3 (14:54→23:39)
[2018-04-23] MEDS: LOSARTAN POTASSIUM 50 MG TABLET PO SCH (15:04)
--- NOTE | 2018-04-23 15:31 | PDOC PROGRESS REPORT ---
Subjective Progress Note for:: 04/24/15 Subjective:: 04/24/2015 72-year-old female admitted for new onset atrial fibrillation, hypotension she had first part of the stress test was done yesterday because of the IV line is not working second part is going to be done tomorrow. No acute events. Patient is afebrile. Comfortably in the bed communicating well. Denies any complaints. Reason For Visit: AFIB HYPOTENSION DIABETIES Physical Exam Vital Signs: Temp Pulse Resp BP Pulse Ox 97.9 F 80 16 138/69 H 100 04/23/18 12:11 04/23/18 12:11 04/23/18 12:11 04/23/18 12:11 04/23/18 12:11 Intake & Output 04/22/18 04/23/18 04/24/18 06:59 06:59 06:59 Intake Total 2049 700 Output Total 1000 0 Balance 1049 700 Weight 106.6 kg 105 kg General appearance: PRESENT: no acute distress Head exam: PRESENT: atraumatic Eye exam: PRESENT: PERRLA Mouth exam: PRESENT: moist, tongue midline Neck exam: ABSENT: carotid bruit, JVD, lymphadenopathy, thyromegaly Respiratory exam: PRESENT: clear to auscultation radha. ABSENT: rales, rhonchi, wheezes Cardiovascular exam: PRESENT: irregular rhythm, systolic murmur, tachycardia Pulses: PRESENT: normal dorsalis pedis pul GI/Abdominal exam: PRESENT: normal bowel sounds, soft. ABSENT: distended, guarding, mass, organolmegaly, rebound, tenderness Extremities exam: PRESENT: full ROM. ABSENT: calf tenderness, clubbing, pedal edema Neurological exam: PRESENT: alert, awake, oriented to person, oriented to place, oriented to time, oriented to situation, CN II-XII grossly intact. ABSENT: motor sensory deficit Psychiatric exam: PRESENT: appropriate affect, normal mood. ABSENT: homicidal ideation, suicidal ideation Results Laboratory Results: 04/23/18 05:21 04/22/18 12:45 04/23/18 05:21 WBC 5.7 RBC 4.16 Hgb 13.3 Hct 37.6 MCV 90 MCH 31.9 MCHC 35.4 RDW 14.2 H Plt Count 211 Seg Neutrophils % 58.8 Lymphocytes % 32.9 Monocytes % 6.2 Eosinophils % 1.5 Basophils % 0.6 Absolute Neutrophils 3.4 Absolute Lymphocytes 1.9 Absolute Monocytes 0.4 Absolute Eosinophils 0.1 Absolute Basophils 0.0 04/20/18 04/20/18 04/20/18 19:50 19:50 22:53 Creatine Kinase 33 CK-MB (CK-2) 0.24 Troponin I 0.031 0.058 04/22/18 04/22/18 04/22/18 00:01 00:01 05:53 Creatine Kinase 35 33 CK-MB (CK-2) 0.28 Troponin I 0.018 04/22/18 04/22/18 04/22/18 05:53 12:45 12:45 Creatine Kinase 33 CK-MB (CK-2) 0.26 0.28 Troponin I 0.015 < 0.012 Impressions: Chest X-Ray 04/20/18 18:45 IMPRESSION: NO ACUTE RADIOGRAPHIC FINDING IN THE CHEST. Assessment & Plan - Diagnosis (1) Atrial fibrillation with RVR Is this a current diagnosis for this admission?: Yes Plan: 04/23/2018-patient is admitted with atrial fib with rapid ventricular rate. Yuliana ent was evaluated by After his recommendations patient was started on Eliquis. Hemoglobin today 13.3 patient denies any passing blood in the stool. New-onset A. fib with rapid ventricular rate may be secondary to underlying pneumonia/COPD exacerbation. Patient has fast phase of stress test done yesterday second phase will be done tomorrow. (2) Atypical chest pain Is this a current diagnosis for this admission?: Yes Plan: 04/23/2018-patient admitted with chest pain cardiac enzymes are negative she had a fast part of stress test done yesterday second part will be done tomorrow. Most likely atypical chest pain secondary to musculoskeletal causes. (3) Chronic back pain Is this a current diagnosis for this admission?: No Plan: 04/23/2018-patient was complaining of chronic back pain she has a surgery scheduled in [facility] on the of this month patient was strongly advised to get in touch with the /neurosurgeon once he is discharged to coordinate the anticoagulation prior to the surgery. (4) Hypertension Qualifiers: Hypertension type: essential hypertension Qualified Code(s): I10 - Essential (primary) hypertension Is this a current diagnosis for this admission?: No Plan: 04/23/2018-patient is given the history of hypertension blood pressure today is 138/69. Stable. He is presently on losartan 100 mg p.o. daily and metoprolol 25 mg p.o. twice daily plan is to continue the medication. - Time Time Spent with patient: 15-24 minutes Medications reviewed and adjusted accordingly: Yes Anticipated discharge: Home
[2018-04-23] MEDS ORDERED: REGADENOSON INJ 0.4 MG/5 ML DISP.SYRIN IV ONE (15:39)
[2018-04-23] MEDS: MELATONIN 3 MG TABLET PO SCH (23:38)
--- NOTE | 2018-04-24 00:08 | EKG REPORT ---
SEVERITY:- ABNORMAL ECG - SINUS RHYTHM INFERIOR INFARCT, AGE INDETERMINATE BORDERLINE R WAVE PROGRESSION, ANTERIOR LEADS : Confirmed by: Devon Cheung 24-Apr-2018 00:07:23
[2018-04-24] MEDS: BACLOFEN 10 MG TABLET PO PRN (07:57)
[2018-04-24] MEDS: INSULIN LISPRO 100 UNIT/ML 3 ML VIAL SUBCUT SCH ×3 (08:09→16:10)
[2018-04-24] MEDS ORDERED: FLUTICASONE NASAL SPRAY 50 MCG/SPRY 120 SPRAY/16 GM NASL SCH (10:00)
[2018-04-24] MEDS: APIXABAN 5 MG TABLET PO SCH ×2 (12:18→17:20)
[2018-04-24] MEDS: METOPROLOL TARTRATE 25 MG TABLET PO SCH (12:18)
[2018-04-24] MEDS: PANTOPRAZOLE SODIUM 40 MG TABLET.DR PO SCH ×2 (12:18→17:21)
[2018-04-24] MEDS: LOSARTAN POTASSIUM 50 MG TABLET PO SCH (12:18)
[2018-04-24] MEDS: DOCUSATE SODIUM 100 MG CAPSULE PO SCH ×2 (12:19→17:20)
[2018-04-24] MEDS ORDERED: REGADENOSON INJ 0.4 MG/5 ML DISP.SYRIN IV ONE (12:49)
--- NOTE | 2018-04-24 16:02 | PDOC DISCHARGE SUMMARY ---
General - Admit/Disc Date/PCP Admission Date/Primary Care Provider: 04/21/18 00:37 Discharge Date: 04/24/18 - Discharge Diagnosis (1) Atrial fibrillation with RVR Is this a current diagnosis for this admission?: Yes Summary: 04/23/2018-patient is admitted with atrial fib with rapid ventricular rate. Patient was evaluated by After his recommendations patient was started on Eliquis. Hemoglobin today 13.3 patient denies any passing blood in the stool. New-onset A. fib with rapid ventricular rate may be secondary to underlying pneumonia/COPD exacerbation. Patient has fast phase of stress test done yesterday second phase will be done tomorrow. 04/24/2018 patient is admitted with A. fib with rapid ventricular rate it is a new onset. Patient was started on Eliquis. Patient's hemoglobin is stable. Prescription for Eliquis 5 mg p.o. twice a day was written. Strongly advised to follow-up with primary care physician in 1 week and also with Dr. Sanderson in 2 weeks time. (2) Atypical chest pain Is this a current diagnosis for this admission?: Yes Summary: 04/23/2018-patient admitted with chest pain cardiac enzymes are negative she had a first part of stress test done yesterday second part will be done tomorrow. Most likely atypical chest pain secondary to musculoskeletal causes. 04/24/2018-patient is admitted with chest pains cardiac enzymes are negative so far. Dr. Sanderson called me and told him his stress test was negative today. Patient is ready to go home today. (3) Chronic back pain Is this a current diagnosis for this admission?: No Summary: 04/23/2018-patient was complaining of chronic back pain she has a surgery scheduled in [facility] on the of this month patient was strongly advised to get in touch with the /neurosurgeon once he is discharged to coordinate the anticoagulation prior to the surgery. 04/24/2018-patient has chronic back pain she is supposed to have back surgery in of this month at [facility] but the patient is planning to postpone the procedure for now. (4) Hypertension Is this a current diagnosis for this admission?: No Summary: Plan: 04/23/2018-patient is given the history of hypertension blood pressure today is 138/69. Stable. He is presently on losartan 100 mg p.o. daily and metoprolol 25 mg p.o. twice daily plan is to continue the medication. 04/24/2018 patient has history of hypertension which was chronic in nature blood pressure today is 163/88 presently on losartan 100 mg p.o. daily metoprolol 25 mg twice daily patient was advised to continue the medication at home low-salt diet was advised that weight loss was advised .she was advised to follow-up with primary care physician in 1 week time. - Additional Information Resuscitation Status: Full Code Discharge Diet: Diabetic Discharge Activity: Activity As Tolerated Prescriptions: Apixaban [Eliquis 5 mg Tablet] 5 mg PO BID #60 tablet Metoprolol Tartrate [Lopressor 25 mg Tablet] 25 mg PO Q12 #60 tablet Home Medications: Fluticasone Propionate [Flonase Nasal [place] 50 Mcg/[place] 16 gm] 2 sprays NASL DAILY 04/21/18 Losartan Potassium 100 mg PO DAILY 04/21/18 Metformin HCl 500 mg PO DAILY 04/21/18 Omeprazole 40 mg PO DAILY 04/21/18 Apixaban [Eliquis 5 mg Tablet] 5 mg PO BID #60 tablet 04/24/18 Baclofen [Baclofen 10 mg Tablet] 10 mg PO TID PRN tablet 04/24/18 Melatonin [Melatonin 3 mg Tablet] 3 mg PO QHS tablet 04/24/18 Metoprolol Tartrate [Lopressor 25 mg Tablet] 25 mg PO Q12 #60 tablet 04/24/18 History of Present Illness History of Present Illness: BRANDI LUCIA is a 72 year old female 72 year old female with a past medical history of diabetes, hypertension, chronic back pain and morbid obesity. She presents 1 hour after the onset of awakening from sleep feeling flushed lightheaded with throat tightness prompting a call to the EMS where she is reported to be in atrial fibrillation in the 200s. She receives Cardizem 10 resolving symptoms and brought to the emergency room for evaluation where she is continued on IV Cardizem. She believes a remote diagnosis of atrial fibrillation for which she was on metoprolol. Patient has scheduled spinal surgery for chronic back pain next week, anticoagul ation not initiated. New medications initiated for pain following basal cell carcinoma resection on the scalp. Physical Exam Vital Signs: Temp Pulse Resp BP Pulse Ox 97.8 F 66 16 163/88 H 98 04/24/18 11:11 04/24/18 14:00 04/24/18 11:11 04/24/18 11:11 04/24/18 11:11 Intake & Output 04/23/18 04/24/18 04/25/18 06:59 06:59 06:59 Intake Total 700 1124 Output Total 0 Balance 700 1124 Weight 105 kg 100.6 kg General appearance: PRESENT: no acute distress Head exam: PRESENT: atraumatic Eye exam: PRESENT: PERRLA Mouth exam: PRESENT: moist, tongue midline Neck exam: ABSENT: carotid bruit, JVD, lymphadenopathy, thyromegaly Respiratory exam: PRESENT: clear to auscultation radha. ABSENT: rales, rhonchi, wheezes Cardiovascular exam: PRESENT: irregular rhythm, tachycardia GI/Abdominal exam: PRESENT: normal bowel sounds, soft. ABSENT: distended, guarding, mass, organolmegaly, rebound, tenderness Extremities exam: PRESENT: full ROM. ABSENT: calf tenderness, clubbing, pedal edema Neurological exam: PRESENT: alert, awake, oriented to person, oriented to place, oriented to time, oriented to situation, CN II-XII grossly intact. ABSENT: m otor sensory deficit Results Laboratory Results: 04/23/18 05:21 04/22/18 12:45 04/20/18 04/20/18 04/20/18 19:50 19:50 22:53 Creatine Kinase 33 CK-MB (CK-2) 0.24 Troponin I 0.031 0.058 04/22/18 04/22/18 04/22/18 00:01 00:01 05:53 Creatine Kinase 35 33 CK-MB (CK-2) 0.28 Troponin I 0.018 04/22/18 04/22/18 04/22/18 05:53 12:45 12:45 Creatine Kinase 33 CK-MB (CK-2) 0.26 0.28 Troponin I 0.015 < 0.012 Impressions: Chest X-Ray 04/20/18 18:45 IMPRESSION: NO ACUTE RADIOGRAPHIC FINDING IN THE CHEST. Qualifiers - * PATIENT BEING DISCHARGED WITH ANY OF THE FOLLOWING DIAGNOSIS: No VTE patient discharged on overlapping Therapy?: No
[2018-04-24 16:37] VITALS: BP 119/57
--- NOTE | 2018-04-24 22:43 | Progress Note ---
Provider Note Provider Note: CARDIOLOGY PROGRESS NOTE by Dr. Nikki Hartley on 04/24/2018. SUBJECTIVE: The patient remains in sinus rhythm. There is no chest pain or discomfort. There is no PND orthopnea. The patient had a uneventful IV Lexiscan Cardiolite stress test today. There is no shortness of breath. There is no PND orthopnea or leg edema. She does have chronic back pain, but this is controlled with current medication. There is no TIA CVA symptoms. There is no dizziness near syncope or syncope. There is no recurrence of atrial fibrillation. There is no ventricular arrhythmia seen on the monitor. PHYSICAL EXAMINATION: The patient is moderately obese. She is well-groomed. In no acute distress. Selected Entries 04/24/18 04/24/18 11:11 16:34 Temperature 97.8 F Pulse Rate 66 Respiratory 16 Rate Blood Pressure 119/57 L [Left Upper Arm ] O2 Sat by Pulse 98 98 Oximetry Oxygen Delivery Room Air Method HEAD: Head is atraumatic normocephalic. Eyes: Pupils are equal round regular reactive light accommodation extraocular movements are normal there is no congenital pallor there is no scleral icterus. Ears: External auditory canals are clear, there are no lesions of the pinna. Nose: No deviated nasal septum and no inflammation of the nasal mucous membrane. Mouth: Mucous membranes of mouth are moist tongue is moist there is no ulcers there is no bleeding from the gums. Throat: There is no redness of the oropharynx there is no exudates. Skin: There is no petechia or ecchymosis there is no skin lesions or skin rashes. Neck: Neck is supple there is no JVD carotids equal there is no bruit there is no lymphadenopathy there is no neck stiffness. There is no goiter trac hea central lungs: Lungs are clear to auscultation percussion there is no accessory muscles of respiration in use. There is no rhonchi rales or wheezing. There is no chest wall tenderness. HEART: S1-S2 is heard there is no S3 gallop there is no S4 gallop S1 is of normal intensity. There is no rub. The systolic murmur in the left sternal border and apex without radiation. Abdomen: Abdomen is soft nontender there is no paraspinal megaly bowel sounds well heard there is no tender areas of masses. There is no rebound guarding or rigidity. Extremities: Femorals are well felt there is no femoral bruits neck pulses are well felt there is no pedal edema there is no DVT or cellulitis there is no cyanosis or clubbing there is no DVT or cellulitis. There is no calf tenderness. PRELOAD SUPERVISOR: The patient is awake alert oriented 3 with no focal deficits. Psychiatric: The patient judgment and insight are intact and her affect is normal. Labs- All tests 24 hr 04/24/18 04/24/18 04/24/18 08:02 11:12 15:44 POC Glucose 118 H 132 H 115 H IV LEXISCAN CARDIOLITE STRESS TEST: This shows no reversible ischemia. There is no is myocardial infarction/scar. This has been discussed with the patient, and with the attending physician on the case. Impression/RECOMMENDATION: 1. Paroxysmal Atrial Fibrillation: At Present Patient Sinus Rhythm. The Patien t Will Benefit from Long-Term Anticoagulation Therapy. Her corrected Musa Vasc 2 Score Is Is 3. The patient is already on Eliquis. If the patient does have back surgery next week, then Eliquis should be held 3 days prior to this proposed surgery, and restart it when deemed safe would recommend a 30-day event monitor as an outpatient. 2. Hypertension: Not optimally controlled. We will recheck the patient's blood pressure in the a.m. to see if her blood pressure medicines need to be adjusted. 3. Chronic back pain: Patient having back surgery next week. THE PATIENT WILL BE LOW/ACCEPTABLE CARDIAC RISK FOR BACK SURGERY: Would monitor the patient perioperatively to make sure that the patient has no recurrence of atrial fibrillation. Would recommend discontinue the patient's Eliquis 3 days prior to surgery, and restarting the patient on Eliquis when deemed safe from surgery point of view. MEDICATIONS reviewed. Management plan discussed with attending physician on the case. The patient is a full code. Her daughter is a surrogate healthcare decision maker medical decision making is of moderate complexity. Recommend a 30-day event monitor as an outpatient. The patient given my contact number, to call me if she desires to follow-up with me. Cardiac status is stable. We will sign off.
--- NOTE | 2018-04-24 23:20 | DRAGON STRESS TEST REPORT ---
2 Day Intravenous Lexiscan Cardiolite stress test using single photon emmision computerized tomography. Date of Resting procedure: 04/22/2018. Date of Stress procedure: 04/24/2018. [The stress portion of the procedure was attempted on 04/23/2018, but was unsuccessful, since the patient's Lexiscan infiltrated into her arm]. Ordering Provider: Dr. Malin Indication: Paroxysmal atrial fibrillation.. Coronary risk factors: Hypertension Resting EKG: Sinus Rhythm. Premature atrial contractions present. Otherwise within normal limits. Stress EKG: No changes of ischemia. The patient had no chest pain or discomfort, and there were no atrial or ventricular arrhythmia seen. Reason for termination: Protocol. Conclusions: Normal EKG and hemodynamic response to IV Lexiscan. Nuclear data: At rest, on 04/22/2018, the patient was given 40.6 millicuries of technetium 99m sestamibi injected intravenously. As per protocol rest non gated SPECT images were obtained. Subsequently on 04/23/2018, although the patient received IV Lexiscan, the Cardiolite infiltrated into, and hence the patient was brought back the next day. On 04/24/2018, the patient was given intravenous Lexiscan at a dose of 0.4 mg in 5 mL intravenously, followed by flush with normal saline. Subsequently the stress dose of 43.6 millicuries of technetium 99m sestamibi was injected intravenously. As per protocol stress gated images were obtained. Nuclear interpretation: Review of images showed that all segments of the myocardium had normal perfusion at rest, and normal perfusion post stress with IV Lexiscan. All segments of the myocardium had normal motion, contraction, and thickening by gated study. T. I D. ratio was normal at 0.91. Computer read rest, and stress left ventricular ejection fraction were 48 %, and 52 %, respectively. Visually both the stress and rest ejection fractions were normal, and greater than 55%. Conclusion: 1. There is no scintigraphic evidence of Lexiscan induced myocardial ischemia. 2. There is no scintigraphic evidence of myocardial infarction/scar. Recommendations: Aggressive risk factor modification, and treating the underlying co- morbidities. MTDD
== END 2018-04-24 18:39 | disposition home or self-care (01) | DRG 310 ==
LOC: ER 18:09 → EH 04-21 00:37 → 3W 04-21 02:55
PROVIDERS: ADMIT Internal Medicine; ATTEND Internal Medicine
DX: I48.0 Paroxysmal atrial fibrillation (principal); R07.89 Other chest pain; I10 Essential (primary) hypertension; C44.41 Basal cell carcinoma of skin of scalp and neck; E11.8 Type 2 diabetes mellitus with unspecified complications; M54.9 Dorsalgia, unspecified; E66.01 Morbid (severe) obesity due to excess calories; Z79.2 Long term (current) use of antibiotics; Z79.84 Long term (current) use of oral hypoglycemic drugs; Z79.899 Other long term (current) drug therapy; Z87.891 Personal history of nicotine dependence
CPT/HCPCS: 36415; 71045; 78452; 80048; 80053; 80069; 81001; 82550; 82553; 82962; 83036; 83735; 84439; 84443; 84481; 84484; 85025; 85610; 85730; 93005; 93010; 93017; 93306; 96360; 96361; 99291; A9500; J1644; J1815; J1885; J2405; J2785; J3490; J7030; Q9969